=== PATIENT | male | born 1970 | race Caucasian/White ===

== ENCOUNTER 2021-10-25 11:41 | Outpatient (CLI) | payer MEDICAID, SELFPAY ==
--- NOTE | 2021-10-25 11:45 | RT.EKG_ITS ---
APPROVED REPORT Exam: Resting ECG Reason for Exam: high risk med Patient Location: O HR:71 bpm ECG Measurements Heart Rate 71 AXIS VT 205 P 68 QRSd 102 QRS 28 QT 460 T 21 QTc 501 Conclusion Sinus rhythm...normal P axis, V-rate 60- 99 Borderline prolonged VT interval...VT >202, V-rate 50- 90 Prolonged QT interval...QTc >500mS
== END 2021-10-25 11:42 | disposition home or self-care (01) ==
LOC: RT 11:48
PROVIDERS: Visit Provider Family Medicine
DX: Z51.81 Encounter for therapeutic drug level monitoring (principal)
CPT/HCPCS: 93005; 93010